=== PATIENT | female | born 1985 | race Caucasian/White ===

== ENCOUNTER → 2024-07-07 14:17 | Outpatient (REF) | payer OTHER, SELFPAY | LOC: WDC 14:17 | PROVIDERS: ATTENDING PHYSICIAN Registered Nurse; FAMILY PHYSICIAN Family Medicine | DX: Z12.31 Encounter for screening mammogram for malignant neoplasm of breast (principal) | CPT/HCPCS: 77063; 77067 ==

== ENCOUNTER → 2025-07-10 15:06 | Outpatient (REF) | payer OTHER, SELFPAY | LOC: WDC 15:06 | PROVIDERS: ATTENDING PHYSICIAN Registered Nurse; FAMILY PHYSICIAN Family Medicine | DX: Z12.31 Encounter for screening mammogram for malignant neoplasm of breast (principal) | CPT/HCPCS: 77063; 77067 ==